=== PATIENT | male | born 1985 | race Caucasian/White ===

== ENCOUNTER → 2021-07-23 | Outpatient (CLI) | payer OTHER ==
--- NOTE | 2021-07-23 14:33 | XR ---
EXAMINATION TYPE: XR lumbar spine 2 or 3V DATE OF EXAM: 07/23/2021 COMPARISON: None HISTORY: Back pain TECHNIQUE: 3 view lumbar spine FINDINGS: There are 5 lumbar-type vertebral bodies. The pedicles are intact. Disc space narrowing is present L5-S1. Some disc space narrowing of L3-4 may be present. Remaining disc heights are preserved . Vertebral body heights are preserved. Minimal spondylosis is present. IMPRESSION: 1. Degenerative disc change L3-4 and L5-S1. 2. Minimal spondylosis.
[2021-07-23 15:39] LABS: Basophils # (A) 0.1 k/uL (0-0.2); Basophils % (A) 1 %; Eosinophils # (A) 0.2 k/uL (0-0.7); Eosinophils % (A) 2 %; HCT 54.5 % (39.0-53.0); HGB 18.2 gm/dL (13.0-17.5); Lymphocytes # (A) 2.6 k/uL (1.0-4.8); Lymphocytes % (A) 25 %; MCH 32.6 pg (25.0-35.0); MCHC 33.4 g/dL (31.0-37.0); MCV 97.5 fL (80.0-100.0); Mean Platelet Volume 7.4; Monocytes # (A) 0.6 k/uL (0-1.0); Monocytes % (A) 6 %; Neutrophils # (A) 6.6 k/uL (1.3-7.7); Neutrophils % (A) 65 %; Platelet Count 271 k/uL (150-450); RBC 5.59 m/uL (4.30-5.90); RDW 12.3 % (11.5-15.5); WBC 10.2 k/uL (3.8-10.6)
[2021-07-23 15:56] LABS: ALT 35 U/L (4-49); AST 25 U/L (17-59); African American GFR (CKD) >90 (>60 ml/min/1.73 sqM); Alkaline Phosphatase 91 U/L (38-126); Anion Gap 10 mmol/L; Blood Urea Nitrogen 17 mg/dL (9-20); Calcium 10.3 mg/dL (8.4-10.2); Carbon Dioxide 27 mmol/L (22-30); Chloride 100 mmol/L (98-107); Glucose 101 mg/dL (74-99); Non-African American GFR(CKD) >90 (>60 ml/min/1.73 sqM); Potassium 5.1 mmol/L (3.5-5.1); Sodium 137 mmol/L (137-145); Total Bilirubin 0.3 mg/dL (0.2-1.3); Total Protein 7.8 g/dL (6.3-8.2)
[2021-07-23 16:21] LABS: Erythrocyte Sedimentation Rate 2 mm/hr (0-15)
[2021-07-24 04:23] LABS: Chol/HDL Ratio 2.85 Ratio; LDL Cholesterol,Calculated 86.4 mg/dL (0.0-131.0)
[2021-07-24 13:05] LABS: HLA B27 NEGATIVE
== END | disposition home or self-care (01) ==
LOC: RADXRMAIN 14:08
PROVIDERS: ATTEND Family Medicine
DX: M51.37 Other intervertebral disc degeneration, lumbosacral region (principal); M47.896 Other spondylosis, lumbar region; I10 Essential (primary) hypertension; B89 Unspecified parasitic disease; Z79.899 Other long term (current) drug therapy
CPT/HCPCS: 36415; 72100; 80053; 80061; 83036; 84443; 85025; 85652; 86812

== ENCOUNTER → 2021-08-22 | Outpatient (CLI) | payer OTHER ==
--- NOTE | 2021-08-22 08:26 | CT ---
EXAMINATION TYPE: CT lumbar spine wo con DATE OF EXAM: 08/22/2021 8:11 AM COMPARISON: HISTORY: Lumbago CT DLP: [id number] Automated exposure control for dose reduction was used. Unenhanced CT of the lumbar spine was performed. Bone and soft tissue window settings are submitted as well as coronal and sagittal reconstructions. L1-L2: Normal disc space height. No disc herniation protrusion or central stenosis. No facet joint arthropathy. No evidence for foraminal encroachment. L2-L3: Normal disc space height. No disc herniation protrusion or central stenosis. No facet joint arthropathy. No evidence for foraminal encroachment. L3-L4: Moderate degenerative disc space narrowing with moderate to potential disc bulge greatest post eriorly. Effacement ventral thecal sac. Hypertrophy of the ligamentum flavum and facet joint arthropa thy result in mild central stenosis. Bilateral foraminal encroachment is noted. L4-L5: Moderate degenerative disc space narrowing with moderate to potential disc bulge greatest post eriorly. Effacement ventral thecal sac. Hypertrophy of the ligamentum flavum and facet joint arthropa thy result in mild central stenosis. Bilateral foraminal encroachment is noted left greater than righ t. L5-S1: Moderate degenerative disc space narrowing. Moderate posterior disc bulge with effacement vent ral thecal sac and bilateral lateral recess stenosis and foraminal encroachment. No central stenosis at this level. No lavonne herniation. No evidence for fracture. No paraspinal mass present. IMPRESSION: 1. Multilevel degenerative disc disease with central stenosis at L3-4 and L4-5 as outlined above.
== END | disposition home or self-care (01) ==
LOC: RADCTMAIN 07:41
PROVIDERS: ATTEND Family Medicine
DX: M51.36 Other intervertebral disc degeneration, lumbar region (principal); M48.061 Spinal stenosis, lumbar region without neurogenic claudication
CPT/HCPCS: 72131

== ENCOUNTER → 2022-07-12 | Outpatient (CLI) | payer OTHER ==
[2022-07-12 22:54] LABS: Basophils # (A) 0.03 X 10*3/uL (0.00-0.10); Basophils % (A) 0.4 %; Eosinophils # (A) 0.26 X 10*3/uL (0.04-0.35); Eosinophils % (A) 3.8 %; HCT 46.1 % (39.6-50.0); HGB 15.5 g/dL (13.0-17.0); Immature Grans, Automated 0.1 %; Lymphocytes # (A) 1.93 X 10*3/uL (0.90-5.00); Lymphocytes % (A) 28.2 %; MCH 31.8 pg (27.0-32.0); MCHC 33.6 g/dL (32.0-37.0); MCV 94.7 fL (80.0-97.0); Mean Platelet Volume 10.9 fL (9.5-12.2); Monocytes # (A) 0.52 X 10*3/uL (0.20-1.00); Monocytes % (A) 7.6 %; NRBC Per 100 WBC 0 /100 WBCS (0.0-0.0); Neutrophils # (A) 4.09 X 10*3/uL (1.80-7.70); Neutrophils % (A) 59.9 %; Platelet Count 253 X 10*3/uL (140-440); RBC 4.87 X 10*6/uL (4.40-5.60); RDW 12.6 % (11.5-14.5); WBC 6.84 X 10*3/uL (4.50-10.00)
[2022-07-12 23:31] LABS: INR 1.04 (0.90-1.11); Prothrombin Time 11.4 sec (9.9-11.9)
[2022-07-12 23:34] LABS: African American GFR (CKD) 98.9 (60.0-200.0); Anion Gap 10.1 mmol/L (10.00-18.00); BUN/Creat Ratio 10.82 Ratio (12.00-20.00); Blood Urea Nitrogen 11.9 mg/dL (9.0-27.0); Calcium 9.6 mg/dL (8.7-10.3); Carbon Dioxide 25.9 mmol/L (20.0-27.5); Non-African American GFR(CKD) 85.3 (60.0-200.0); Potassium 4.2 mmol/L (3.5-5.5)
== END | disposition home or self-care (01) ==
LOC: LABPAT 14:17
PROVIDERS: ATTEND Orthopaedic Surgery
DX: Z01.812 Encounter for preprocedural laboratory examination (principal); M51.26 Other intervertebral disc displacement, lumbar region; Z22.322 Carrier or suspected carrier of Methicillin resistant Staphylococcus aureus
CPT/HCPCS: 80048; 85025; 85610; 87070; 93005

== ENCOUNTER 2022-07-23 11:31 | Day surgery (SDC) | payer OTHER ==
[2022-07-19 14:14] VITALS: BMI 24.4
--- NOTE | 2022-07-23 06:13 | P.HPOR ---
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 associated risk factors posed to the patient. The patient was councelled at length about their options surgical, non surgical and medications. The above note was initiated by Fred Castellano, physician recording conservation assistant for Dr. Fred Marcano. This note has been reviewed by Dr. Marcano, who has made his personal changes and impressions for this document. CC: René Umaña M.D. .ND:Procedure: Office Visit Level 3 : 01699 Evaluation and Management code calculated based on the 1995 CMS Guidelines. # SIGNED BY Fred Marcano (GOO)07/23/2022 06:12AM Past Medical History Past Medical History: Musculoskeletal Disorder, Osteoarthritis (OA) Additional Past Medical History / Comment(s): Deteriorating Disc Disease. History of Any Multi-Drug Resistant Organisms: None Reported Past Surgical History: No Surgical Hx Reported Additional Past Surgical History / Comment(s): [place] teeth extracted, "urethra enlargement". Past Anesthesia/Blood Transfusion Reactions: No Reported Reaction Past Psychological History: ADD/ADHD Additional Psychological History / Comment(s): ADHD. Smoking Status: Current every day smoker Additional Past Alcohol Use History / Comment(s): Smokes 1 ppd, since age 12. Past Drug Use History: Marijuana Additional Drug Use History / Comment(s): Marijuana use daily. Aware no use 24 hrs prior to procedure. - Past Family History Mother Family Medical History: No Reported History Medications and Allergies Home Medications Medication Instructions Recorded Confirmed Type Gabapentin 600 mg PO TID 07/19/22 07/19/22 History Ibuprofen 600 mg PO Q6H PRN 07/19/22 07/19/22 History tiZANidine [Zanaflex] 4 mg PO TID PRN 07/19/22 07/19/22 History Allergies Allergy/AdvReac Type Severity Reaction Status Date / Time No Known Allergies Allergy Verified 07/19/22 13:59 Physical Examination Osteopathic Statement: *. No significant issues noted on an osteopathic structural exam other than those noted in the History and Physical/Consult.
[~2022-07-23 11:31] MED LIST: ACETAMINOPHEN TAB 500 MG TAB PO PRN; GABAPENTIN 300 MG CAP PO PRN; LACTATED RINGERS 1,000 ML IV SCH; LIDOCAINE 1% (10MG/ML) FOR IV START INTRADERMA PRN; ONDANSETRON 4 MG/2 ML VIAL IVP PRN; TRANEXAMIC ACID IN NACL,ISO-OS 1,000 MG in SALINE 1 100ML.BAG IVPB PRN
[2022-07-23] MEDS ORDERED: LACTATED RINGERS 1,000 ML IV ONE ×2 (13:00→17:01)
--- NOTE | 2022-07-23 15:05 | P.PN ---
Progress Note - Text Progress Note Date: 07/23/22 History and Physical UPDATE I have seen and examined the patient and reviewed the history and physical. There appear to be no significant changes in the patient's current medical status as outlined in the current History and Physical.
[2022-07-23] MEDS ORDERED: LIDOCAINE 2% INJ 20 MG/ML (2 ML VIAL) ONE (15:50)
[2022-07-23] MEDS ORDERED: TRANEXAMIC ACID IN NACL,ISO-OS 1,000 MG/100 ML BAG ONE (15:50)
[2022-07-23] MEDS ORDERED: ROCURONIUM 10 MG/ML (5 ML VIAL) IV ONE (15:50)
[2022-07-23] MEDS ORDERED: GLYCOPYRROLATE 0.2 MG/ML 2 ML VIAL ONE (15:50)
[2022-07-23] MEDS ORDERED: NEOSTIGMINE 1 MG/ML 10 ML VIAL ONE (15:50)
[2022-07-23] MEDS ORDERED: fentaNYL (PF) 50 MCG/ML 2 ML AMP ONE (15:50)
[2022-07-23] MEDS ORDERED: MIDAZOLAM 2 MG/2 ML VIAL ONE (15:50)
[2022-07-23] MEDS ORDERED: SUCCINYLCHOLINE CHLORIDE 200 MG/10 ML VIAL IV ONE (15:50)
[2022-07-23] MEDS ORDERED: PROPOFOL 10 MG/ML 20 ML VIAL IV ONE (15:50)
[2022-07-23] MEDS ORDERED: THROMBIN (BOVINE) 5,000 UNIT VIAL TOPICAL ONE (17:04)
[2022-07-23] MEDS: HYDROmorphone 0.5 MG/0.5 ML SYRINGE IVP PRN ×2 (18:47→19:05)
[2022-07-23 19:57] VITALS: RESP 17
[2022-07-23] MEDS ORDERED: ONDANSETRON 4 MG/2 ML VIAL IVP ONE (20:00)
--- NOTE | 2022-07-23 20:05 | FL ---
EXAMINATION TYPE: FL guidance operating room, XR lumbar spine 2 or 3V DATE OF EXAM: 07/23/2022 CLINICAL HISTORY: Low back pain. TECHNIQUE: Fluoroscopy. Intraoperative 2 views lumbar spine. COMPARISON: Outside lumbar spine x-rays February 22, 2022. FINDINGS: Fluoroscopic guidance was provided during lumbar discectomy procedure performed by Dr. Leo benavides. A total of 40 seconds of fluoroscopic time was utilized during the procedure and 5 spot jessica ges was acquired. Intraoperative images acquired show advancement of surgical hardware targeting L5-S1 level. IMPRESSION: As Above.
[2022-07-23 20:22] VITALS: BP 129/72; PULSE 62
--- NOTE | 2022-07-24 12:26 | P.OP ---
Date of Procedure: 07/23/22 Preoperative Diagnosis: 1. L5-S1 HNP with stenosis 2. LLE radiculopathy and weakness Postoperative Diagnosis: 1. L5-S1 HNP with stenosis 2. LLE radiculopathy and weakness Procedure(s) Performed: 1. L5-S1 left laminoforaminotomy and microdiscectomy (94453) Implants: None Anesthesia: GETA Surgeon: Fred Marcano Mobile Home Set Up Person #1: Adolfo Kebede (Was present and assisted in all aspects of the case including positiong, retractor placement, decompression, closure and dressing placement) Estimated Blood Loss (ml): 50 IV fluids (ml): 1,500 Urine output (ml): 250 Pathology: none sent Condition: stable Disposition: PACU Indications for Procedure: Mr. Duncan is presenting for evaluation of low back pain and left lower extremity radiculopathy. It was my pleasure to have seen and examined Mr. Duncan. In our visit today we have had a chance to go over subjective complaints, physical examination findings and treatments including the natural course history without intervention and various interventional options. The patients imaging demonstrates: XRay taken on 03/27/22 of Lumbar Spine and Pelvis: Images reviewed demonstrate spondylosis at L3-S1 with the worst at L3-4 and L5-S1. THere is retrolisthesis of L4-5 which is mild and causes mild stenotic features. There are no fractures noted or overt instability there is hypermobility at the L3-4 and L5-S1 segments at this time. Pelvis is congruent without fracture. CT scan from08/22/2021 of LumbarSpine: Similar findings to XR and MRI with disc dessication height loss, spondylosis as well as facet arthropathy, osteophytes and the posterior disc osteophyte at L5- S1 on the LHS coming from the facet. Outside MRI scan from 11/30/2021 of Lumbar Spine: Images reviewed shows a large disc osteophyte complex paracentral on the LHS of L5-S1 causing severe foraminal stenoisis as well as mild to moderate central stenosis. There is disc desiccation through the L spine as well. There is moderate stenosis related to spondylotic changes at L3-L4 as well. No fractures noted. No overt instability. On physical exam, Mr. Duncan demonstrates severely restricted lumbar ROM impacting gait along with bilateral lower extremity radiculopathy. I have explained to the patient that as their condition progresses it will cause further neurological deficits and eventual paralysis. Based on the patients imaging, physical exam, and the rapid progression and disabling nature of their symptoms, at this time I recommend surgery in the form or a: lumbar left side approach (L5-S1) Microdiskectomy . I discussed the risk and benefits of this procedure at length with Mr. Duncan. The patient agreed to considered pursu ing the procedure abovementioned. Prior to surgery, she should follow up with her PCP (Cardio, ID, IM etc) for clearance. Questions were invited and answered, and the patient wishes to proceed as outlined below. Currently, I am recommendin.lumbar left side approach (L5-S1) Microdiscectomy Description of Procedure: The patient was seen and examined in the preoperative area. All preoperative protocols were followed. Informed consent was obtained risks and benefits of the procedure were discussed at length. Risks including bleeding infection damage to the surrounding tissue and risk of reoperation were discussed with the patient. Risk of anesthesia up to and including was a discussed with the patient. These are outlined in the risk review. They were willing to accept these risks and all of the risks of surgery. The patient was given a weight- based dose of antibiotics in the form of 2 g Ancef. The patient was seen and evaluated by the anesthesia team who deemed them fit for surgery. The site was marked, the patient was willing to proceed with the procedure. The patient was transferred to the operative suite by the Department of anesthesia. They were then drifted off to sleep by the department anesthesia and GETA was performed. The patient tolerated this well. Once confirmation of lines and ventilation the patient was transferred to a [prone Chao table very carefully]. All bony prominences including wrists, elbows, axilla, chest, hips, and thighs, and feet were padded very well. Special attention was paid to the genitalia and these were padded accordingly. SCDs were placed on bilateral lower extremities and were connected. Arms were well padded and placed [on arm boards up and out in the 90/90 position]. Once in position, again we confirmed good ventilation capabilities and that lines were running appropriately. The patient's lumbar spine was then exposed. 1010s were placed outlining the incision site. Standard alcohol was used to clean the incision site and allowed to dry. C-arm was used to biomark the patient and confirm level for incision which was marked with a skin marker. Operative briefing was performed with all teams and everyone in agreement to proceed. The patient was then prepped and draped in a normal sterile fashion. Timeout was then performed and all parties were in agreement with the procedure to be performed. AP and lateral fluoroscopy was then used to target the L5-S1 disc space on the left-hand side. Once this was accomplished skin incision was made and sequential dilation was taken up using to a retractor system once we dilated to 22 mm to the 2 was selected and placed and secured to the table with an arm clamp. We confirmed its position on AP and lateral fluoroscopy. The microscope was then brought in for visualization. Limited myomectomy was performed over the facet joints and lamina of L5 and S1. These were identified there is exuberant scar tissue over this area which was removed. We then performed lamina foraminotomies of L5-S1 on the left-hand side. Dissection and high-speed bur was taken down to the ligamentum flavum and partial medial facetectomy performed at these levels. The ligamentum flavum was then removed revealing the exiting nerve root of L5 as well as traversing root of S1 which were decompressed and followed along their pounds. Once this is accomplished to mobilize the neural segments and the disc space was identified at L5-S1. There is exuberant scar tissue in this area as well as a disc osteophyte complex which was identified. Part of it was removed and the other part was impacted into the disc space as there was extreme collapse of the L5-S1 disc space in this area. There are no loose fragments the foramen was completely decompressed. We impacted any further osteophytic material into the disc space as well and removed any loose fragments. The disc space was then irrigated thoroughly as well as the wound bed meticulous hemostasis was performed using FloSeal and bipolar electrocautery. The wound bed again was then irrigated with normal sterile saline we confirmed decompression on AP and lateral fluoroscopic imaging. We then under direct visualization removed the retractor system. The wound was again copiously irrigated deep fascia was closed with 0 Vicryl superficial subcu closed with 2-0 Vicryl and skin closed with 4-0 Monocryl strata fix. The wound edges approximated well the wound was then cleaned and dressed with glue and an operative foam dressing. The patient was transferred back to their hospital bed atraumatically. Patient was then awakened and extubated by the department of anesthesia having tolerated the procedure very well with no complications. They were transferred to the postoperative care unit in stable condition.
== END 2022-07-23 21:35 | disposition home or self-care (01) ==
LOC: OR 11:31
PROVIDERS: ATTEND Orthopaedic Surgery
DX: M51.26 Other intervertebral disc displacement, lumbar region (principal); M48.07 Spinal stenosis, lumbosacral region; M47.26 Other spondylosis with radiculopathy, lumbar region; F17.210 Nicotine dependence, cigarettes, uncomplicated; M25.78 Osteophyte, vertebrae; F12.90 Cannabis use, unspecified, uncomplicated; Z98.890 Other specified postprocedural states; Z79.899 Other long term (current) drug therapy
CPT/HCPCS: 86900; 86901; 86850; 72100; 36415; 63030; C1762; J2250; J0330; J2710; J0690; J2405; J3010; J2704; J1170; J2001

== ENCOUNTER → 2023-12-08 | Outpatient (CLI) | payer OTHER ==
[2023-12-08 10:36] VITALS: BP 147/99; PULSE 91; RESP 15; TEMP 97.5
--- NOTE | 2023-12-08 14:21 | P.PAINPG ---
PQRS Measure Charge Sheet Comment: HISTORY OF PRESENT ILLNESS: A 38 yr old male as a referral from Dr Marcano presents today w severe and chronic LBP x 2 yrs secondary to post laminectomy syndrome for evaluation. Pt states pain level is provoked at 6 /10 in intensity, constant, localized in the lower lumbar spine, predominantly axial, sharp in character w occasional shooting pain towards the BL feet. Pain is provoked by sitting for periods > 30 min. Pain is alleviated by PT x 6 wks which ended in Aug 2022, physician guided exercises daily since Aug 2022, alternating heat & ice, medications (Neurontin), topical, repositioning and rest. Oswestry axial pain score at 25. PMH: OA, ADD/ ADHD PSH: L5-S1 Laminectomy/ Microdiscectomy (2021), [place] Tooth Extraction SH: Daily tobacco use since age 12, No ETOH abuse, Cannabis use FH: Mo- No Reported History All: See list Meds: See list REVIEW OF ORGAN SYSTEMS: CONSTITUTIONAL: No fevers or chills. No recent weight loss. NEUROLOGICAL: + numbness and tingling along the distal extremities. No seizure disorders or headaches. MUSCULOSKELETAL: + pain PSYCHIATRIC: Denies current depression or suicidal thoughts. Physical Examinations : Constitutional : Cooperative , not in acute distress . Neurologic : Cranial nerve II to XII intact. No focal neurological deficits. Psychiatric : alert & oriented x 3. Matching mood & appropriate affect. Judgment & insight intact. Musculoskeletal : Cervical Spine Motor strength in the deltoid and biceps: Normal right side. Normal Left side Motor strength biceps and the wrist extensors: Normal right side . Normal left side Motor strength in the triceps muscle: Normal right side. Normal left side Deep tendon reflexes: Normal at the biceps. Normal at Brachioradialis. Normal at triceps Vertebral body tenderness to deep palpation over Cervical facet loading test: positive bilaterally Spurling test: positive bilaterally Neck distraction test: positive bilaterally Luis Enrique sign: positive bilaterally Lumbar spine Motor strength lower extremities ,thigh and legs 5/5 Right side , 5/5 Left side Deep tendon reflexes : Normal Knee Jerk. Normal Ankle Jerk Vertebral body tenderness over L5 Bright Test positive Lumbar facet Loading Test: positive Right / positive Left Range of motion of the lumbar spine Flexion 30 degrees, extension 10 degrees Straight Leg Raise test: Left/ Right positive at <35 degrees Roberta test: positive right / positive left. Severe tenderness over the Sacroiliac joint on the Right / Left sides Gaenslen test: positive bilaterally Seated flexion test: positive bilaterally. Sacral spine : Severe tenderness over the Sacroiliac joint: right side / left side Range of motion: Flexion of the lumbar spine <60 degrees Range of motion: Extension of the lumbar spine <20 degrees Gaenslen's Test positive Roberta test: positive right side / left side Thigh Thrust Test Sacral Thrust Test Imaging: CT noncontrast of the lumbar spine from 08/22/2021 reviewed Assessment/ Plan : Lumbar post laminectomy syndrome Recommendation of BL TFESI L5-S1 #1. May need a series of injections for optimal pain relief. Risks, benefits of procedure discussed and patient verbalized understanding. Admits to anti- coagulant use or medical history of diabetes. Protocol for discontinuation/ continuation of medications jessica procedure discu ssed. All questions answered. I have spent greater than 30 minutes on patient care today. Dr Mcdonough was available by phone for the evaluation of this patient. The time was used to review the medical records including relevant urine studies and Prescription history (MAPs), review of the available imaging, evaluation and examination of the patient, coordination of care with the medical staff and if applicable referring physicians, as well as creation of the medical record Home Medications: Ambulatory Orders Gabapentin 600 mg PO TID 07/19/22 Ibuprofen 600 mg PO Q6H PRN 07/19/22 tiZANidine [Zanaflex] 4 mg PO TID PRN 07/19/22 Cyclobenzaprine [Flexeril] 5 mg PO BID PRN #30 tablet 07/23/22 HYDROcodone/APAP 7.5-325MG [[place] 7.5] 1 each PO Q4HR PRN #42 tab 07/23/22 Sennosides/Docusate Sodium [Senna-S 8.6-50 mg Tablet] 1 each PO DAILY PRN #30 tablet 07/23/22 cefaDROXiL [Duricef] 500 mg PO Q12HR 5 Days #10 cap 07/23/22 Controlled Substance Measures - Controlled Substance Measures Is patient prescribed a controlled substance at discharge?: No
== END ==
LOC: PNWHC3 09:47
PROVIDERS: ATTEND Specialist
DX: M96.1 Postlaminectomy syndrome, not elsewhere classified (principal)
CPT/HCPCS: 99211

== ENCOUNTER 2024-01-01 09:28 | Day surgery (SDC) | payer OTHER ==
[2023-12-22 13:23] VITALS: BMI 23.1
[~2024-01-01 09:28] MED LIST changes: -ACETAMINOPHEN TAB 500 MG TAB PO PRN; -GABAPENTIN 300 MG CAP PO PRN; -LIDOCAINE 1% (10MG/ML) FOR IV START INTRADERMA PRN; -ONDANSETRON 4 MG/2 ML VIAL IVP PRN; -TRANEXAMIC ACID IN NACL,ISO-OS 1,000 MG in SALINE 1 100ML.BAG IVPB PRN
[2024-01-01 10:20] VITALS: RESP 16; TEMP 98.6
[2024-01-01] MEDS ORDERED: DEXAMETHASONE SOD PHOSPHATE 10 MG/ML 1 ML VIAL ONE (11:00)
[2024-01-01] MEDS ORDERED: IOPAMIDOL M300 15ML VIAL ONE (11:00)
[2024-01-01] MEDS ORDERED: ROPIVACAINE 5MG/ML 20ML VIAL ONE (11:00)
--- NOTE | 2024-01-01 11:35 | P.PCN ---
Description of Procedure: PREOPERATIVE DIAGNOSIS: 1-Lumbar radiculopathy . 2-lumbar degenerative disc disease. 3-lumbar spondylosis with lumbar facet arthropathy without myelopathy POSTOPERATIVE DIAGNOSIS: 1-lumbar radiculopathy. 2-lumbar degenerative disc disease. 3-lumbar spondylosis with facet arthropathy without myelopathy PROCEDURE 1. Transforaminal epidural steroid injection under fluoroscopic guidance at BILATERAL L5-S1 level. (Fluoroscopy images stored on file in the radiology Department ) 2. Lumbar epidurogram . ANESTHESIA: Local with 1% lidocaine 5 ml. subcutaneously. Continuous pulse ox, EKG, blood pressure and verbal communication was maintained with the patient. EBL: Minimal PROCEDURE INDICATION: The patient with low back pain and radiculopathy symptoms unresponsive to conservative treatment. The patient was seen and identified in the preoperative area. Risks, benefits, complications, and alternatives were discussed with the patient. The patient agreed to proceed with the procedure and signed the consent. IV was started, and vital signs were stable. PROCEDURE DESCRIPTION / TECHNIQUE: After getting consent, patient was taken to the OR and time out was completed. The patient was placed in the prone position on procedure table and a pillow was placed under the abdomen to reduce lumbar lordosis. The lumbosacral area was prepped and draped in the usual sterile fashion. Critical pause was taken. After injecting 5 mL of plain 1% lidocaine subcutaneously, under oblique view of the fluoroscope, a 22-gauge spinal needle was introduced under the tunnel view of the fluoroscope on the RIGHT side and the needle was advanced so that the tip of the needle was at the posterior inferior quadrant of the intervertebral for amen at the lateral view of the fluoroscope and in the lateral third of the facet column in the AP view of the fluoroscope. Negative CSF, negative blood, negative paresthesia. After needle position confirmation by AP and cross table lateral view, 3 mL of Isovue-M 200 contrast was injected under continuous fluoroscope. No contrast was noted in the intrathecal or intravascular space. The epidurogram was noted. Again after repeated negative aspiration 2.5 mL solution was injected which consists 1.5 mL of normal saline mixed with 1 mL of 15 mg dexamethasone. Needle was removed . Same procedure was repeated at the LEFT side at same level , using contrast under continuous fluoroscopy and using same amount of dexamethasone. At the end of the procedure, skin was cleansed, and bandages were applied. DISPOSITION / PLANS: No complication. The patient tolerated the procedure well. The patient was placed in a supine position and transferred to the recovery area in a stable condition for observation. There was no evidence of lower extremity motor or sensory deficit after the procedure. Patient was discharged from the recovery room after meeting discharge criteria. Home discharge instru ctions were given to the patient by the staff. The patient was reexamined prior to discharge.
--- NOTE | 2024-01-01 11:36 | FL ---
Fluoroscopy INDICATION: Pain FINDINGS: Fluoroscopy time: 1 minute 5 seconds. Total dose area product (DAP) in uGy*m?, mGy*cm? (or similar): 0.66795 Images obtained: 5. IMPRESSION: 1. Documentation of fluoroscopy.
[2024-01-01 12:21] VITALS: BP 142/89; PULSE 72
== END 2024-01-01 11:59 | disposition home or self-care (01) ==
LOC: ORPAIN 09:28
PROVIDERS: ATTEND Pain Medicine Interventional Pain Medicine
DX: M51.16 Intervertebral disc disorders with radiculopathy, lumbar region (principal); M47.26 Other spondylosis with radiculopathy, lumbar region; Z79.899 Other long term (current) drug therapy
CPT/HCPCS: 64483

== ENCOUNTER → 2024-01-21 | Outpatient (CLI) | payer OTHER ==
[2024-01-21 11:43] VITALS: BP 146/87; PULSE 68; RESP 16; TEMP 97.3
--- NOTE | 2024-01-21 14:36 | P.PAINPG ---
PQRS Measure Charge Sheet Comment: HISTORY OF PRESENT ILLNESS: A 38 yr old male presents today w severe and chronic LBP x 2 yrs secondary to post laminectomy syndrome for evaluation s/p BL TFESI L5-S1 #1. Pt states he experienced 60 % pain relief x 2 days s/p procedure. Pt states pain level is provoked at 6 /10 in intensity, constant, localized in the lower lumbar spine, predominantly axial, sharp in character w occasional shooting pain towards the BL feet. Pain is provoked by sitting for periods > 30 min. Pain is alleviated by PT x 6 wks which ended in Sep 2023, physician guided exercises daily since Sep 2023, alternating heat & ice, medications, topical, repositioning and rest. Oswestry axial pain score at 24. International procedures include BL TFESI L5-S1 #1 Medications include Zanaflex, Ibu, Neurontin, Celebrex, Neurontin, Horse Ointment, Cannabis use REVIEW OF ORGAN SYSTEMS: CONSTITUTIONAL: No fevers or chills. No recent weight loss. NEUROLOGICAL: + numbness and tingling along the distal extremities. No seizure disorders or headaches. MUSCULOSKELETAL: + pain PSYCHIATRIC: Denies current depression or suicidal thoughts. Physical Examinations : Constitutional : Cooperative , not in acute distress . Neurologic : Cranial nerve II to XII intact. No focal neurological deficits. Psychiatric : alert & oriented x 3. Matching mood & appropriate affect. Judgment & insight intact. Musculoskeletal : Cervical Spine Motor strength in the deltoid and biceps: Normal right side. Normal Left side Motor strength biceps and the wrist extensors: Normal right side . Normal left side Motor strength in the triceps muscle: Normal right side. Normal left side Deep tendon reflexes: Normal at the biceps. Normal at Brachioradialis. Normal at triceps Vertebral body tenderness to deep palpation over Cervical facet loading test: positive bilaterally Spurling test: positive bilaterally Neck distraction test: positive bilaterally Luis Enrique sign: positive bilaterally Lumbar spine Motor strength lower extremities ,thigh and legs 5/5 Right side , 5/5 Left side Deep tendon reflexes : Normal Knee Jerk. Normal Ankle Jerk Vertebral body tenderness over L5 Bright Test positive Lumbar facet Loading Test: positive Right / positive Left Range of motion of the lumbar spine Flexion 30 degrees, extension 10 degrees Straight Leg Raise test: Left/ Right positive at <35 degrees Roberta test: positive right / positive left. Severe tenderness over the Sacroiliac joint on the Right / Left sides Gaenslen test: positive bilaterally Seated flexion test: positive bilaterally. Sacral spine : Severe tenderness over the Sacroiliac joint: right side / left side Range of motion: Flexion of the lumbar spine <60 degrees Range of motion: Extension of the lumbar spine <20 degrees Gaenslen's Test positive Roberta test: positive right side / left side Thigh Thrust Test Sacral Thrust Test Imaging: CT noncontrast of the lumbar spine from 08/22/2021 reviewed Assessment/ Plan : Lumbar post laminectomy syndrome Will follow up w Dr Marcano to explore additional treatment options. All questions answered. I have spent greater than 30 minutes on patient care today. Dr Mcdonough was available by phone for the evaluation of this patient. The time was used to review the medical records including relevant urine studies and Prescription history (MAPs), review of the available imaging, evaluation and examination of the patient, coordination of care with the medical staff and if applicable referring physicians, as well as creation of the medical record PQRS Narrative: Hx Alcohol Use (MH) No Home Medications: Ambulatory Orders Gabapentin 600 mg PO TID 07/19/22 Ibuprofen 800 mg PO Q6H PRN 07/19/22 tiZANidine [Zanaflex] 4 mg PO TID PRN 07/19/22 Celecoxib [CeleBREX] 200 mg PO BID 12/22/23 Vitamin D12 5,000 mg PO WEEKLY 12/22/23 Controlled Substance Measures - Controlled Substance Measures Is patient prescribed a controlled substance at discharge?: No
== END ==
LOC: PNWHC3 10:54
PROVIDERS: ATTEND Specialist
DX: M96.1 Postlaminectomy syndrome, not elsewhere classified (principal); G89.29 Other chronic pain; M54.50 Low back pain, unspecified
CPT/HCPCS: 99211

== ENCOUNTER 2024-09-15 05:15 | Emergency (ER) | payer OTHER ==
[2024-09-15 05:27] VITALS: TEMP 97.6
[2024-09-15] MEDS: FLUORESCEIN STRIPS 1 MG STRIP LEFT EYE ONE (06:10)
[2024-09-15] MEDS: PROPARACAINE 0.5% OPHTH DROPS 15 ML BTL LEFT EYE STA (06:10)
[2024-09-15] MEDS: ACET/COD 300 MG/30 MG STARTER PACK 6 TAB BTL PO STA (06:28)
[2024-09-15] MEDS: MORPHINE SULFATE 4 MG/ML SYRINGE IM STA (06:29)
[2024-09-15] MEDS: DIPH,PERTUS(ACELL)TETVAC-LF 0.5 ML VIAL IM ONE (06:29)
--- NOTE | 2024-09-15 06:30 | ED ---
Eye Problem HPI - General Chief complaint: Eye Problems Stated complaint: Eye issues Time Seen by Provider: 09/15/24 06:00 Source: patient, RN notes reviewed Mode of arrival: ambulatory Limitations: no limitations - History of Present Illness Initial comments: This is a 39-year-old male who presents to the emergency department for a left eye injury. He was cutting wood last night and accidentally poked himself in the left eye with a piece of the wood. He irrigated this afterwards, but states that he continues to have severe pain. Reports that his vision seems somewhat blurry and he is having difficulty fully opening the eye. Unsure when his last tetanus vaccine was. He does not wear contacts. MD chief complaint: eye injury - Related Data Home Medications Medication Instructions Recorded Confirmed Gabapentin 600 mg PO TID 07/19/22 01/21/24 Ibuprofen 800 mg PO Q6H PRN 07/19/22 01/21/24 tiZANidine [Zanaflex] 4 mg PO TID PRN 07/19/22 01/21/24 Celecoxib [CeleBREX] 200 mg PO BID 12/22/23 01/21/24 Vitamin D12 5,000 mg PO WEEKLY 12/22/23 01/21/24 Allergies Allergy/AdvReac Type Severity Reaction Status Date / Time No Known Allergies Allergy Verified 09/15/24 05:28 Review of Systems ROS Statement: Those systems with pertinent positive or pertinent negative responses have been documented in the HPI. ROS Other: All systems not noted in ROS Statement are negative. Past Medical History Past Medical History: Musculoskeletal Disorder, Osteoarthritis (OA) Additional Past Medical History / Comment(s): Deteriorating Disc Disease. "Irregular heart rate.' History of Any Multi-Drug Resistant Organisms: None Reported Past Surgical History: Orthopedic Surgery Additional Past Surgical History / Comment(s): [place] teeth extracted, "urethra enlargement". Lower back surgery 2021. Past Anesthesia/Blood Transfusion Reactions: No Reported Reaction Past Psychological History: ADD/ADHD Smoking Status: Current every day smoker Past Alcohol Use History: None Reported Past Drug Use History: Marijuana - Past Family History Mother Family Medical History: Cancer Additional Family Medical History / Comment(s): Maternal grandmother-skin cancer. General Exam Limitations: no limitations General appearance: alert, in no apparent distress Head exam: Present: atraumatic, normocephalic, normal inspection Eye exam: Present: PERRL, EOMI, other (No foreign bodies bilaterally) Respiratory exam: Present: normal lung sounds bilaterally. Absent: respiratory distress, wheezes, rales, rhonchi, stridor Cardiovascular Exam: Present: regular rate, normal rhythm, normal heart sounds. Absent: systolic murmur, diastolic murmur, rubs, gallop, clicks Neurological exam: Present: alert, oriented X3, CN II-XII intact Psychiatric exam: Present: normal affect, normal mood Skin exam: Present: warm, dry, intact, normal color. Absent: rash Course Vital Signs 09/15/24 09/15/24 05:23 06:38 Temperature 97.6 F Pulse Rate 72 63 Respiratory 16 18 Rate Blood Pressure 132/91 134/79 O2 Sat by Pulse 99 98 Oximetry Medical Decision Making - Medical Decision Making This is a 39-year-old male who presents to the emergency department for a left eye injury. Was pt. sent in by a medical professional or institution? @ -No Did you speak to anyone other than the patient for history? @ -No Did you review nursing and triage notes? @ -Yes, and I agree, it is accurate with regards to the patient's symptoms. Were old charts reviewed? @ -No Differential Diagnosis? @ -Differential Eye Pain: Conjuncitivitis (viral, bacterial, allergic), corneal abrasion, foreign body, iritis, uveitis, keratitis, acute angle closure glaucoma, this is not meant to be an all-inclusive list. EKG interpreted by me (3pts min.)? @ -Not obtained X-rays interpreted by me (1pt min.)? @ -Not obtained CT interpreted by me (1pt min.)? @ -Not obtained U/S interpreted by me (1pt. min.)? @ -Not obtained What testing was considered but not performed? (CT, X-rays, U/S, labs)? Why? @ -None What meds were considered but not given? Why? @ -None Did you discuss the management of the patient with other professionals? @ -No Did you reconcile home meds? @ -No Was smoking cessation discussed for >3mins.? @ -I discussed smoking cessation for greater than 3 minutes. The risk of smoking were discussed with the patient including but not limited to risks of cancer, stroke, coronary artery disease and COPD. Also discussed with patient were multiple methods of quitting smoking. Lastly we discussed the financial cost of smoking. Was critical care preformed (if so, how long)? @ -No Were there social determinants of health that impacted care today? How? (Homelessness, low income, unemployed, alcoholism, drug addiction, transportation, low edu. Level, literacy, decrease access to med. care, group home, rehab)? @ -No Was there de-escalation of care discussed even if they declined? (Discuss DNR or withdrawal of care, Hospice)? @ -No What co-morbidities impacted this encounter? (DM, HTN, Smoking, COPD, CAD, Cancer, CVA, Hep., AIDS, mental health diagnosis, sleep apnea, morbid obesity)? @ -Smoking Was patient admitted / discharged? @ -Discharged. Fluorescein staining performed demonstrating a corneal abrasion. No foreign bodies were identified. Patient was sent home with ciprofloxacin eyedrops to be applied as 2 drops to the left eye 4 times daily for the next 5 days for infectious prophylaxis. Tetanus vaccine was updated. Advised ibuprofen or Tylenol as needed for pain relief. Information for ophthalmology follow-up provided as well. Patient discharged home in stable condition. Case discussed with ED attending Dr. Perez. Return precautions reviewed in depth, the patient is instructed to return to the emergency department with any new, worsening, or concerning symptoms. Patient verbalized understanding. Undiagnosed new problem with uncertain prognosis? @ -None Drug Therapy requiring intensive monitoring for toxicity (Heparin, Nitro, Insulin, Cardizem)? @ -None Were any procedures done? @ -None Diagnosis/symptom? @ -Corneal abrasion Acute, or Chronic, or Acute on Chronic? @ -Acute Uncomplicated (without systemic symptoms) or Complicated (systemic symptoms)? @ -Uncomplicated Side effects of treatment? @ -None Exacerbation, Progression, or Severe Exacerbation] @ -Not applicable Poses a threat to life or bodily function? @ -No Disposition Clinical Impression: Corneal abrasion, Nicotine dependence Disposition: HOME SELF-CARE Instructions (If sedation given, give patient instructions): Corneal Abrasion (ED) Additional Instructions: Return to the emergency department with any new, worsening, or concerning symptoms. Apply the ciprofloxacin eyedrops provided as 2 drops to the left eye 4 times daily for 5 days. Apply the ketorolac eyedrops provided as 1 drop to the left eye every 6 hours as needed for pain relief. Contact the ophth almologist listed below for a follow-up appointment and reevaluation. Is patient prescribed a controlled substance at d/c from ED?: No Referrals: Adriane Lucas MD [Primary Care Provider] - 1-2 days Madhavi Shane MD [STAFF PHYSICIAN] - 1-2 days Time of Disposition: 06:30
[2024-09-15] MEDS: CIPROFLOXACIN 0.3% OPHTH SOLN 5 ML BTL LEFT EYE ONE (06:34)
[2024-09-15] MEDS: KETOROLAC 0.5% OPHTH DROPS 5 ML BTL LEFT EYE ONE (06:34)
[2024-09-15 06:39] VITALS: BP 134/79; PULSE 63; RESP 18
== END 2024-09-15 06:40 | disposition home or self-care (01) ==
LOC: EC 05:15
DX: S05.02XA Injury of conjunctiva and corneal abrasion without foreign body, left eye, initial encounter (principal); F17.200 Nicotine dependence, unspecified, uncomplicated; Z23 Encounter for immunization; W26.8XXA Contact with other sharp object(s), not elsewhere classified, initial encounter
CPT/HCPCS: 90715; 99406; 90471; 96372; 99283; J2270

== ENCOUNTER → 2024-09-17 | Outpatient (CLI) | payer OTHER ==
--- NOTE | 2024-09-17 11:41 | US ---
EXAMINATION TYPE: US abdomen complete DATE OF EXAM: 09/17/2024 COMPARISON: NONE CLINICAL INDICATION: Male, 39 years old with history of Z72.0 TOBACCO USE; pain TECHNIQUE: Grayscale and color Doppler imaging of the abdomen was performed. FINDINGS: EXAM MEASUREMENTS: Liver Length: 16.1 cm Gallbladder Wall: .2 cm CBD: .5 cm, color Doppler imaging was utilized to isolate the common bile duct for measurement. Spleen: 11.5 cm Right Kidney: 11.7 x 4.3 x 4.9 cm Left Kidney: 11.4 x 4.1 x 4.8 cm [employer] NOTES: Pancreas: wnl Liver: wnl Gallbladder: No stones seen Evidence for sonographic Oliva's sign: No CBD: wnl Spleen: wnl Right Kidney: wnl Left Kidney: wnl Upper IVC: wnl Abd Aorta: wnl The liver is homogenous. The intrahepatic portion of the IVC and proximal abdominal aorta are within normal limits. There is no evidence of cholelithiasis. Common bile duct is unremarkable. The visu alized portions of the pancreas are homogenous. The spleen is unremarkable. Kidneys are symmetric a nd free of hydronephrosis. No renal lesions are seen. IMPRESSION: No evidence for acute process. [facility], , 09/17/2024 11:39 AM
== END | disposition home or self-care (01) ==
LOC: RADUSWWP 09:11
PROVIDERS: ATTEND Family Medicine
DX: R07.81 Pleurodynia (principal); Z72.0 Tobacco use
CPT/HCPCS: 76700

== ENCOUNTER → 2024-10-18 | Outpatient (CLI) | payer OTHER ==
--- NOTE | 2024-10-18 10:20 | CT ---
EXAMINATION TYPE: CT chest wo con DATE OF EXAM: 10/18/2024 COMPARISON: None CLINICAL INDICATION: Male, 39 years old with history of Z72.0 TOBACCO USE R07.81 PLEURODYNIA; PHH, Ri b pain TECHNIQUE: CT scan of the thorax is performed without IV contrast. CT DLP: 227.8 mGycm Automated exposure control for dose reduction was used. FINDINGS: LUNGS: The lungs are grossly clear, there is no concerning parenchymal mass or nodule identified. T here is no pleural effusion or pneumothorax seen. The tracheobronchial tree is patent. Minimal apica l right paraseptal emphysema. The left lower lobe there is a 2 mm pulmonary micronodule subpleural im age 59 series 4 and right lower lobe image 54 series 4 which has a benign appearance. MEDIASTINUM: Lack of IV contrast is noted to limit evaluation for mediastinal and especially hilar ad enopathy. There are no definitive greater than 1 cm hilar or mediastinal lymph nodes. No cardiomega ly or pericardial effusion is seen. Mild coronary artery calcification. OTHER: Osseous structures are intact. Mild degenerative changes spine. Small hiatal hernia. IMPRESSION: 1. No acute intrathoracic process. 2. The rib cage is intact no acute displaced rib fracture. 3. Small hiatal hernia. 4. Mild coronary artery calcification. Follow-up recommendations for incidental pulmonary nodules are per [employer] or [employer]. [facility], , 10/18/2024 10:18 AM
== END | disposition home or self-care (01) ==
LOC: RADCTMAIN 09:38
PROVIDERS: ATTEND Family Medicine
DX: R07.81 Pleurodynia (principal); Z72.0 Tobacco use; K44.9 Diaphragmatic hernia without obstruction or gangrene; I25.10 Atherosclerotic heart disease of native coronary artery without angina pectoris
CPT/HCPCS: 71250

== ENCOUNTER → 2024-10-29 | Outpatient (CLI) | payer OTHER ==
--- NOTE | 2024-10-30 08:42 | MR ---
INDICATION: Patient age:Male; 39 years old; Reason for study: M62.81 MUSCLE WEAKNESS (GENERALIZE, M54.50, M54.16; [facility]. COMPARISONS: MRI lumbar spine 11/30/2021, Lumbar spine radiograph 11/12/2023, 08/18/2023, 04/14/2023, 11/0407/23/2022, CT lumbar spine 08/22/2021. TECHNIQUE: Multi planar, multi sequence imaging was performed utilizing: T1-weighted, T2-weighted, a nd turbo inversion recovery imaging of the lumbar spine. The patient was not given contrast. FINDINGS: The lumbar vertebral bodies do have preserved heights. Minimal retrolisthesis of L5 on S1 without pars defects. Mild levocurvature of the lumbar spine with apex at L3. Type I Modic changes in volving the endplates around the L2-L3, L3-L4, and L5-S1 discs. Multilevel disc desiccation is presen t. The conus medullaris and the distal spinal cord do appear unremarkable with regards to their sign al intensity and morphology. L1-L2: Broad-based disc bulge with minimal effacement of the anterior thecal sac. No neural foramina l stenosis. L2-L3: Broad-based disc bulge with mild effacement of the anterior thecal sac. Bilateral facet arthro sujit. Mild bilateral neural foraminal stenosis. L3-L4: Broad-based disc bulge with minimal effacement of the anterior thecal sac. There is close pro ximity of the disc to the exiting right L3 nerve root. Bilateral facet arthropathy. Mild to moderate right and minimal left neural foraminal stenosis. L4-L5: Broad-based disc bulge without significant effacement of the anterior thecal sac. Bilateral fa cet arthropathy. Minimal right and mild left neural foraminal stenosis. L5-S1: Tiny central disc protrusion without significant mass effect upon the thecal sac. Previously seen left subarticular zone disc herniation is no longer visualized. Facet joints are enlarged. Mode rate left and mild right neural foraminal stenosis. Other significant findings: None. IMPRESSION: 1. Multilevel disc degeneration with associated osteoarthritic changes as described above. Mild cent ral canal stenosis at L2-L3. Previously seen disc herniation at L5-S1 is no longer visualized. Otherw ise remaining degenerative disease is relatively stable from prior exam. 2. Mild levocurvature of the lumbar spine with apex at L3. Additional minimal retrolisthesis of L5 o n S1 without pars defects. [facility], , 10/30/2024 8:40 AM
== END | disposition home or self-care (01) ==
LOC: RADMRIMAIN 18:55
PROVIDERS: ATTEND Orthopaedic Surgery
DX: M51.16 Intervertebral disc disorders with radiculopathy, lumbar region (principal); M48.061 Spinal stenosis, lumbar region without neurogenic claudication; M47.26 Other spondylosis with radiculopathy, lumbar region; M43.17 Spondylolisthesis, lumbosacral region; M62.81 Muscle weakness (generalized)
CPT/HCPCS: 72148

== ENCOUNTER 2025-01-18 11:07 | Day surgery (SDC) | payer OTHER ==
[2025-01-12 15:31] VITALS: BMI 22.1
[~2025-01-18 11:07] MED LIST changes: -LACTATED RINGERS 1,000 ML IV SCH; +LIDOCAINE 1% (10MG/ML) FOR IV START INTRADERMA PRN; +ONDANSETRON 4 MG/2 ML VIAL IVP PRN
[2025-01-18 12:12] VITALS: TEMP 97.6
[2025-01-18] MEDS: LACTATED RINGERS 1,000 ML IV SCH (12:13)
[2025-01-18] MEDS ORDERED: PROPOFOL 10 MG/ML 20 ML VIAL IV ONE (12:44)
--- NOTE | 2025-01-18 12:48 | P.GSHP ---
History of Present Illness H&P Date: 01/18/25 Chief Complaint: Colon cancer screening 39-year-old male here for colonoscopy. He has not had 1 previously. Family history of colon cancer in a grandparent. No bowel complaints. Past Medical History Past Medical History: Musculoskeletal Disorder, Osteoarthritis (OA) Additional Past Medical History / Comment(s): Deteriorating Disc Disease. "Irregular heart rate.', History of Any Multi-Drug Resistant Organisms: None Reported Past Surgical History: Orthopedic Surgery Additional Past Surgical History / Comment(s): [place] teeth extracted, "urethra enlargement". Lower back surgery 2021. Past Anesthesia/Blood Transfusion Reactions: No Reported Reaction Smoking Status: Current every day smoker - Past Family History Mother Family Medical History: Cancer Additional Family Medical History / Comment(s): Maternal grandmother-skin cancer. Medications and Allergies Home Medications Medication Instructions Recorded Confirmed Type No Known Home Medications 01/12/25 01/12/25 History Allergies Allergy/AdvReac Type Severity Reaction Status Date / Time No Known Allergies Allergy Verified 01/18/25 12:05 Surgical - Exam Vital Signs Temp Pulse Resp BP Pulse Ox 97.6 F 77 18 157/88 100 01/18/25 12:11 01/18/25 12:11 01/18/25 12:11 01/18/25 12:11 01/18/25 12:11 Physical exam: General: Well-developed, well-nourished HEENT: Normocephalic, sclerae nonicteric Abdomen: Nontender, nondistended Extremities: No edema Neuro: Alert and oriented Assessment and Plan (1) Colon cancer screening Narrative/Plan: Will proceed with colonoscopy at this time. Current Visit: Yes Status: Acute Code(s): Z12.11 - ENCOUNTER FOR SCREENING FOR MALIGNANT NEOPLASM OF COLON SNOMED Code(s): 226238476
[2025-01-18] MEDS: IV FLUID CONTINUATION 1,000 ML IV ONE (13:01)
--- NOTE | 2025-01-18 13:01 | P.PCN ---
Date of Procedure: 01/18/25 Procedure(s) Performed: PREOPERATIVE DIAGNOSIS: Colon cancer screening with family history in grandparent POSTOPERATIVE DIAGNOSIS: Normal exam PROCEDURE: Colonoscopy ANESTHESIA: MAC SURGEON: Abhishek Eli M.D. SPECIMENS: None ENDOSCOPIC PROCEDURE: The patient was placed on the endoscopy table in the left decubitus position. The Olympus colonoscope was inserted into the anus and passed under direct visualization to the base of the cecum. The appendiceal orifice was visualized. From that point the scope was slowly withdrawn inspecting all surfaces carefully. There were no neoplastic inflammatory or polypoid lesions throughout the cecum, ascending, transverse, descending, sigmoid and rectum. There was no visible diverticulosis noted. Digital rectal examination was normal. The patient was taken to the recovery room in stable condition per anesthesia guidelines. RECOMMENDATIONS: Resume diet. Repeat colonoscopy age 45.
[2025-01-18 13:25] VITALS: BP 138/78; PULSE 78; RESP 18
== END 2025-01-18 13:48 | disposition home or self-care (01) ==
LOC: ORWHC2ENDO 11:07
PROVIDERS: ATTEND Surgery
DX: Z12.11 Encounter for screening for malignant neoplasm of colon (principal); Z80.0 Family history of malignant neoplasm of digestive organs; F17.200 Nicotine dependence, unspecified, uncomplicated
CPT/HCPCS: 45378; J2704